=== PATIENT | female | born 1940 | race Two or more races ===

== ENCOUNTER 2021-05-16 10:52 | Inpatient (IN) | payer OTHER ==
[~2021-05-16] VITALS: Ht 149.9 cm; Wt 52.8 kg
[2021-05-16] MEDS ORDERED: SODIUM CHLORIDE 0.9% 1,000 ML IVB ONE (11:30)
[2021-05-16 12:11] LABS: Basophils # (auto) 0.1 10 ^3/uL (0-0.2); Basophils % (auto) 0.7 % (0.0-2.0); Eosinophils # (auto) 0.2 10 ^3/uL (0-0.8); Hematocrit 38.7 % (36.0-46.0); Hemoglobin 12.9 g/dL (12.2-16.2); Lymphocytes # (auto) 2.1 10 ^3/uL (0.4-5.4); Lymphocytes % (auto) 18.5 % (10.0-50.0); Mean Corpuscular Hemoglobin 28.9 pg (28.0-32.0); Mean Corpuscular Hgb Conc. 33.4 g/dL (32.0-36.0); Mean Corpuscular Volume 86.7 fL (80.0-100.0); Monocytes # (auto) 0.6 10 ^3/uL (0-1.3); Monocytes % (auto) 5.3 % (0.0-12.0); Neutrophils # (auto) 8.1 10 ^3/uL (1.6-8.6); Neutrophils % (auto) 73.5 % (37.0-80.0); Nucleated Red Blood Cells % 0.1 %; Red Blood Cells 4.47 10^6/uL (4.0-5.20); Red Cell Distribution Width 14.9 % (11.8-14.3); White Blood Cell 11.1 10^3/uL (4.4-10.8)
[2021-05-16 12:34] LABS: Albumin 2.9 g/dL (3.4-5.0); Calcium 8.5 mg/dL (8.5-10.1); Magnesium 2.5 mg/dL (1.6-2.6); Potassium 4.4 mmol/L (3.5-5.1)
[2021-05-16 12:36] LABS: Bilirubin, Total 0.4 mg/dL (0.2-1.0)
[2021-05-16] MEDS ORDERED: MORPHINE SULFATE INJECTION 2 MG/ML SYRG IV PRN ×3 (12:45→15:00)
[2021-05-16] MEDS ORDERED: NITROGLYCERIN 0.4 MG SL TAB SL PRN ×2 (12:45→15:00)
[2021-05-16] MEDS ORDERED: POTA10TA32 PO (13:49)
[2021-05-16] MEDS ORDERED: MET25T PO (13:49)
[2021-05-16] MEDS ORDERED: LOSA-69 PO (13:49)
[2021-05-16] MEDS ORDERED: DONE1TAB88 PO (13:49)
[2021-05-16] MEDS ORDERED: ACET1CAP14 PO (13:49)
[2021-05-16] MEDS ORDERED: CARV6.2551 PO (13:49)
[2021-05-16] MEDS ORDERED: POM (13:50)
[2021-05-16] MEDS ORDERED: ATORVASTATIN 20 MG TAB PO ONE (15:00)
[2021-05-16] MEDS ORDERED: ONDANSETRON HCL 4 MG/2 ML VIAL IV PRN (15:00)
[2021-05-16] MEDS ORDERED: ALUM & MAG HYDROX-SIMETH LIQ(MAALOX) 30 ML PO PRN (15:00)
[2021-05-16] MEDS ORDERED: levoFLOXacin 500MG 100 ML IV ONE (15:00)
[2021-05-16] MEDS ORDERED: HYDROcodone-ACET 5/325MG TAB PO PRN (15:00)
[2021-05-16] MEDS ORDERED: DOCUSATE SOD 100 MG CAP PO PRN (15:00)
[2021-05-16] MEDS ORDERED: ACETAMINOPHEN 325 MG TAB PO PRN (15:00)
[2021-05-16 15:37] LABS: Cholesterol 191 mg/dL (< 200)
[2021-05-16 15:40] LABS: HDL Cholesterol 69 mg/dL (40-59); LDL Cholesterol 102 mg/dL (< 100); Triglycerides 173 mg/dL (< 150)
[2021-05-16 17:54] LABS: Urine Bacteria FEW /hpf (None Seen); Urine Blood TRACE /uL (Negative); Urine Specific Gravity 1.013 (1.001-1.035); Urine WBC 27 /hpf (0 - 5)
[2021-05-16 18:09] LABS: Alcohol, Urine < 3.0 mg/dL (0-10); Amphetamine Screen, Urine NEGATIVE (NEGATIVE); Barbiturate Scree,Urine NEGATIVE (NEGATIVE); Benzodiazephine Screen, Urine NEGATIVE (NEGATIVE); Cannabinoid Screen, Urine NEGATIVE (NEGATIVE); Cocaine Screen, Urine NEGATIVE (NEGATIVE); Opiate Scree,Urine NEGATIVE (NEGATIVE); Phencyclidine Screen, Urine NEGATIVE (NEGATIVE)
[2021-05-16] MEDS: SODIUM CHLORIDE 0.9% 1,000 ML IV SCH (23:00)
[2021-05-16 23:05] VITALS: BP 162/96
[2021-05-16 23:58] VITALS: BP 162/96
[2021-05-17] VITALS (7 sets, daily range): BP systolic 83–158; BP diastolic 53–80
[2021-05-17] MEDS: ATORVASTATIN 20 MG TAB PO SCH ×2 (00:26→21:28)
[2021-05-17] MEDS: CARVEDILOL 3.125 MG TAB PO SCH ×3 (00:26→21:26)
[2021-05-17] MEDS ORDERED: INFLUENZA QUAD 2021-2022 0.5 ML SYRG IM ONE (00:45)
[2021-05-17 06:49] LABS: Basophils # (auto) 0 10 ^3/uL (0-0.2); Basophils % (auto) 0.4 % (0.0-2.0); Eosinophils # (auto) 0.2 10 ^3/uL (0-0.8); Eosinophils % (auto) 1.7 % (0.0-7.0); Hemoglobin 13.6 g/dL (12.2-16.2); Lymphocytes # (auto) 1.9 10 ^3/uL (0.4-5.4); Lymphocytes % (auto) 19.8 % (10.0-50.0); Mean Corpuscular Hemoglobin 29.2 pg (28.0-32.0); Mean Corpuscular Hgb Conc. 33.9 g/dL (32.0-36.0); Monocytes # (auto) 0.5 10 ^3/uL (0-1.3); Monocytes % (auto) 5.8 % (0.0-12.0); Neutrophils # (auto) 6.8 10 ^3/uL (1.6-8.6); Neutrophils % (auto) 72.3 % (37.0-80.0); Nucleated Red Blood Cells % 0.2 %; Red Blood Cells 4.65 10^6/uL (4.0-5.20); Red Cell Distribution Width 14.6 % (11.8-14.3); White Blood Cell 9.4 10^3/uL (4.4-10.8)
[2021-05-17 06:58] LABS: INR 1.03 (0.9-1.15); Partial Thromboplastin Time 31.8 sec (23.6-33.0)
[2021-05-17 07:05] LABS: Calcium 8.2 mg/dL (8.5-10.1); Potassium 3.7 mmol/L (3.5-5.1)
[2021-05-17 07:13] LABS: Albumin 2.8 g/dL (3.4-5.0); BUN/Creatinine Ratio 19.6; Bilirubin, Total 0.6 mg/dL (0.2-1.0); Magnesium 2.3 mg/dL (1.6-2.6); Phosphorus 3.5 mg/dL (2.5-4.90); Total Protein 7.4 g/dL (6.4-8.2)
[2021-05-17] MEDS: levoFLOXacin 250MG 50 ML IV SCH (09:40)
[2021-05-17] MEDS: SODIUM CHLORIDE 0.9% 1,000 ML IV SCH (09:41)
[2021-05-17] MEDS: LOSARTAN POTASSIUM 50 MG TAB PO SCH (09:41)
[2021-05-17] MEDS: ASPirin 81 mg TAB PO SCH (09:42)
[2021-05-17] MEDS ORDERED: ENOXAPARIN SOD 60 MG/0.6 ML SYRINGE SC SCH (10:00)
[2021-05-17] MEDS ORDERED: levoFLOXacin 500MG 100 ML IV SCH (10:00)
[2021-05-17] MEDS: SOD CHL 0.9%/ KCL 20MEQ 1,000 ML IV SCH (16:30)
[2021-05-18] VITALS (8 sets, daily range): BP systolic 144–198; BP diastolic 68–89
[2021-05-18] MEDS ORDERED: ADENOSINE 44 MG in GIVE UN-DILUTED 0 ML IV STA (08:03)
[2021-05-18] MEDS: SOD CHL 0.9%/ KCL 20MEQ 1,000 ML IV SCH ×2 (09:44→18:10)
[2021-05-18] MEDS: ASPirin 81 mg TAB PO SCH (09:45)
[2021-05-18] MEDS: CARVEDILOL 3.125 MG TAB PO SCH ×2 (09:51→22:46)
[2021-05-18] MEDS: ENOXAPARIN SOD 30 MG/0.3 ML SYRINGE SC SCH (09:52)
[2021-05-18] MEDS: levoFLOXacin 250MG 50 ML IV SCH (09:52)
[2021-05-18] MEDS: LOSARTAN POTASSIUM 50 MG TAB PO SCH (09:52)
[2021-05-18] MEDS ORDERED: HALOPERIDOL LACTATE 5 MG/ML INJ VIAL IM PRN ×2 (14:45→21:45)
[2021-05-18] MEDS: ATORVASTATIN 20 MG TAB PO SCH (22:46)
[2021-05-19 04:53] VITALS: BP 159/82
[2021-05-19 09:00] VITALS: BP 164/100
[2021-05-19] MEDS: ASPirin 81 mg TAB PO SCH (09:16)
[2021-05-19] MEDS: levoFLOXacin 250MG 50 ML IV SCH (09:16)
[2021-05-19] MEDS: ENOXAPARIN SOD 30 MG/0.3 ML SYRINGE SC SCH (09:16)
[2021-05-19] MEDS: LOSARTAN POTASSIUM 50 MG TAB PO SCH (09:17)
[2021-05-19] MEDS: CARVEDILOL 3.125 MG TAB PO SCH ×2 (09:18→21:35)
[2021-05-19] MEDS: SOD CHL 0.9%/ KCL 20MEQ 1,000 ML IV SCH (09:22)
[2021-05-19 12:10] LABS: Folate (Folic Acid) 15.74 ng/mL (5.38-24)
[2021-05-19 13:00] VITALS: BP 191/106
[2021-05-19] MEDS ORDERED: cefTRIAXone 1GM/50ML D5W 50 ML IV SCH (14:00)
[2021-05-19] MEDS ORDERED: cefTRIAXone 1GM/50ML D5W 50 ML IV ONE (14:00)
[2021-05-19] MEDS: hydrALAZINE HCL 20 MG/ML VL IV PRN ×2 (15:43→21:51)
[2021-05-19 17:00] VITALS: BP 165/104
[2021-05-19] MEDS ORDERED: amLODIPine BESYLATE 5 MG TAB PO ONE (17:15)
[2021-05-19 19:11] VITALS: BP 176/101
[2021-05-19] MEDS: ATORVASTATIN 20 MG TAB PO SCH (21:35)
[2021-05-19 22:00] VITALS: BP 97/49
[2021-05-20 05:00] VITALS: BP 128/60
[2021-05-20 07:30] VITALS: BP 97/49
[2021-05-20 08:03] LABS: Basophils # (auto) 0 10 ^3/uL (0-0.2); Basophils % (auto) 0.3 % (0.0-2.0); Eosinophils # (auto) 0 10 ^3/uL (0-0.8); Eosinophils % (auto) 0.2 % (0.0-7.0); Hematocrit 41.7 % (36.0-46.0); Hemoglobin 13.8 g/dL (12.2-16.2); Lymphocytes # (auto) 1.8 10 ^3/uL (0.4-5.4); Lymphocytes % (auto) 15.8 % (10.0-50.0); Mean Corpuscular Hemoglobin 28.5 pg (28.0-32.0); Mean Corpuscular Hgb Conc. 33.1 g/dL (32.0-36.0); Mean Corpuscular Volume 86.1 fL (80.0-100.0); Monocytes # (auto) 0.6 10 ^3/uL (0-1.3); Monocytes % (auto) 5.4 % (0.0-12.0); Neutrophils # (auto) 8.8 10 ^3/uL (1.6-8.6); Neutrophils % (auto) 78.3 % (37.0-80.0); Nucleated Red Blood Cells % 0.1 %; Red Blood Cells 4.85 10^6/uL (4.0-5.20); Red Cell Distribution Width 15.3 % (11.8-14.3); White Blood Cell 11.3 10^3/uL (4.4-10.8)
[2021-05-20 08:17] LABS: BUN/Creatinine Ratio 20.1; Calcium 8.8 mg/dL (8.5-10.1); Potassium 4.4 mmol/L (3.5-5.1)
[2021-05-20 09:00] VITALS: BP 96/45
[2021-05-20] MEDS: LOSARTAN POTASSIUM 50 MG TAB PO SCH (10:00)
[2021-05-20] MEDS: CARVEDILOL 3.125 MG TAB PO SCH ×2 (10:00→22:22)
[2021-05-20] MEDS: amLODIPine BESYLATE 5 MG TAB PO SCH (10:00)
[2021-05-20] MEDS: ASPirin 81 mg TAB PO SCH (11:08)
[2021-05-20] MEDS: cefTRIAXone 1GM/50ML D5W 50 ML IV SCH (11:08)
[2021-05-20] MEDS: ENOXAPARIN SOD 30 MG/0.3 ML SYRINGE SC SCH (11:08)
[2021-05-20 13:00] VITALS: BP 98/49
[2021-05-20 17:00] VITALS: BP 114/74
[2021-05-20 22:03] VITALS: BP 141/69
[2021-05-20] MEDS: ATORVASTATIN 20 MG TAB PO SCH (22:22)
[2021-05-21 05:10] VITALS: BP 145/65
[2021-05-21 08:40] VITALS: BP 118/69
[2021-05-21] MEDS: cefTRIAXone 1GM/50ML D5W 50 ML IV SCH (09:25)
[2021-05-21] MEDS: ASPirin 81 mg TAB PO SCH (10:33)
[2021-05-21] MEDS: CARVEDILOL 3.125 MG TAB PO SCH ×2 (10:34→22:02)
[2021-05-21] MEDS: LOSARTAN POTASSIUM 50 MG TAB PO SCH (10:34)
[2021-05-21] MEDS: amLODIPine BESYLATE 5 MG TAB PO SCH (10:35)
[2021-05-21] MEDS: ENOXAPARIN SOD 30 MG/0.3 ML SYRINGE SC SCH (10:35)
[2021-05-21 12:36] VITALS: BP 154/71
[2021-05-21 17:00] VITALS: BP 128/54
[2021-05-21] MEDS: ATORVASTATIN 20 MG TAB PO SCH (22:02)
[2021-05-21 22:18] VITALS: BP 147/71
[2021-05-22] MEDS: hydrALAZINE HCL 20 MG/ML VL IV PRN (00:21)
[2021-05-22] MEDS: cefTRIAXone 1GM/50ML D5W 50 ML IV SCH (08:56)
[2021-05-22] MEDS: ASPirin 81 mg TAB PO SCH (10:00)
[2021-05-22] MEDS: CARVEDILOL 3.125 MG TAB PO SCH (10:07)
[2021-05-22] MEDS: amLODIPine BESYLATE 5 MG TAB PO SCH (10:08)
[2021-05-22] MEDS: ENOXAPARIN SOD 30 MG/0.3 ML SYRINGE SC SCH (10:08)
[2021-05-22 14:22] LABS: Calcium 8.5 mg/dL (8.5-10.1); Potassium 3.9 mmol/L (3.5-5.1)
[2021-05-22] MEDS ORDERED: LOSA-69 PO (14:52)
[2021-05-22] MEDS ORDERED: ASPI1TAB20 PO (14:52)
[2021-05-22] MEDS ORDERED: AML5T PO (14:52)
[2021-05-22] MEDS ORDERED: ATOR10TA52 PO (14:52)
[2021-05-22] MEDS ORDERED: HAL5T PO (14:54)
[2021-05-22 16:27] VITALS: BP 149/69
[2021-05-22 16:38] VITALS: BP 149/69
== END 2021-05-22 17:00 | disposition home or self-care (01) | DRG 70 ==
LOC: EDBD 10:52 → ER 10:52 → TELE 12:31 → TELE-CENTR 23:05
PROVIDERS: ADMIT Hospitalist; ATTEND Internal Medicine
PROC: 05HB33Z Insertion of Infusion Device into Right Basilic Vein, Percutaneous Approach (ICD-10-PCS; principal; 2021-05-17)
PROC: B54MZZA Ultrasonography of Right Upper Extremity Veins, Guidance (ICD-10-PCS; 2021-05-17)
DX: G93.41 Metabolic encephalopathy (principal); N17.0 Acute kidney failure with tubular necrosis; I13.0 Hypertensive heart and chronic kidney disease with heart failure and stage 1 through stage 4 chronic kidney disease, or unspecified chronic kidney disease; N39.0 Urinary tract infection, site not specified; I50.22 Chronic systolic (congestive) heart failure; I42.9 Cardiomyopathy, unspecified; R55 Syncope and collapse; G30.9 Alzheimer's disease, unspecified; F02.80 Dementia in other diseases classified elsewhere, unspecified severity, without behavioral disturbance, psychotic disturbance, mood disturbance, and anxiety; N18.31 Chronic kidney disease, stage 3a; Z20.822 Contact with and (suspected) exposure to COVID-19; B96.1 Klebsiella pneumoniae [K. pneumoniae] as the cause of diseases classified elsewhere; E78.1 Pure hyperglyceridemia; F17.200 Nicotine dependence, unspecified, uncomplicated; E78.5 Hyperlipidemia, unspecified; I44.7 Left bundle-branch block, unspecified; B96.4 Proteus (mirabilis) (morganii) as the cause of diseases classified elsewhere; M19.90 Unspecified osteoarthritis, unspecified site; R32 Unspecified urinary incontinence; Z79.899 Other long term (current) drug therapy; Z82.3 Family history of stroke; Z83.3 Family history of diabetes mellitus; Z85.3 Personal history of malignant neoplasm of breast; Z90.12 Acquired absence of left breast and nipple; Z90.710 Acquired absence of both cervix and uterus; Z88.0 Allergy status to penicillin
CPT/HCPCS: 36415; 70450; 70551; 71045; 78452; 80048; 80053; 80061; 80307; 81001; 82607; 82746; 83036; 83735; 83880; 84100; 84443; 84484; 85025; 85610; 85730; 87040; 87086; 87088; 87186; 87426; 93005; 93017; 93306; 93886; 95819; 96365; 97163; G0378; J0153; J0696; J1956

== ENCOUNTER 2024-06-29 12:20 | Inpatient (IN) | payer OTHER ==
[~2024-06-29] VITALS: Ht 157.5 cm; Wt 56.5 kg
[~2024-06-29 12:20] MED LIST: AML5T PO; ASPI1TAB20 PO; ATOR10TA52 PO; CARV6.2551 PO; DONE1TAB88 PO; HAL5T PO; LOSA-534 PO
--- NOTE | 2024-06-29 12:38 | ECG ---
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
--- NOTE | 2024-06-29 12:50 | ED.PDOC ---
Altered Mental Status HPI Comments 83 y.o female with PMH of HDL and HTN, presents to the ED via EMS for an evaluation of a syncopal episode today. EMS reports patient was inside her shower, caregiver was assisting her up from the shower seat when patient lost consciousness. Patient was assisted down, therefore no head injury was reported. Patient is unable to recollect event, at this time is unsure of where she is at nor what she did today or yesterday. Family on scene told EMS patient is not at her baseline and denied any history of dementia or Alzheimer but per [facility] record of 2020, there is comment of possible history of Alzheimer. Patient had 2 episodes of vomiting en route but upon ED arrival, symptoms resolved. Patient d enies any symptoms or pain at this time. Per EMS, patient was saturating in the low 91-92% RA, was placed on 2 liters NC and 12 EKG ran read Left bundle branch block. Patient has no history of CAD, CHF, or AR. Chief Complaint: Syncope Time Seen by MD: 12:28 Reviewed Notes: Nurses Notes, Transcriptionist Notes, Medications, Allergies Allergies: Coded Allergies: Penicillins (Verified Allergy, Unknown, 05/16/21) Home Meds Active Scripts Haloperidol (Haldol) 5 Mg Tb, 0.5 TAB PO Q8HP PRN, #20 TAB 0 Refills 1/2 tab q8h prn for agitation Prov:MIR HALE MD 05/22/21 Atorvastatin Calcium (ATORVASTATIN CALCIUM) 10 Mg Tab, 1 TAB PO DAILY, #30 TAB 0 Refills Prov:MIR HALE MD 05/22/21 Aspirin (Aspir-81) 81 Mg Tab, 1 TAB PO DAILY, #90 TAB 0 Refills Prov:MIR HALE MD 05/22/21 Losartan Potassium (Losartan Potassium) 50 Mg Tab, 1 TAB PO DAILY, #30 TAB 0 Refills Prov:MIR HALE MD 05/22/21 Amlodipine Besylate (NORVASC TABLET) 5 Mg Tb, 5 MG PO DAILY for 30 Days, #30 TAB Prov:MIR HALE MD 05/22/21 Reported Medications Donepezil Hydrochloride (DONEPEZIL HCL) 10 Mg Tab, 1 TAB PO QPM 05/16/21 Carvedilol (Carvedilol) 6.25 Mg Tab, 1 TAB PO BIDWM 05/16/21 Information Source: Patient, Emergency Med Personnel Mode of Arrival: EMS Severity: Moderate Timing: Hours Duration: Since onset Prehospital treatment: 12 Lead EKG (left bundle branch block ), 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 [employer], Oxygen (2 liters NC ) Quality: Decreased Alertness, Change in Behavior, Confusion Recent: Nausea, Vomiting Associated Signs and Symptoms: None Past Medical History PAST MEDICAL HISTORY: Dementia, HTN Surgical History: Appendectomy, Tonsillectomy HISTOLOGY TEACHER History: No Pertinent HISTOLOGY TEACHER History Family History Family History: Unknown Social History Smoker: Non-Smoker, Quit Greater Than 1 Year Alcohol: Denies ETOH Use Drugs: Denies Drug Use Lives In: Home Constitutional: denies: chills, diaphoresis, fatigue, fever, malaise, sweats, weakness, others EENTM: denies: blurred vision, double vision, ear bleeding, ear discharge, ear drainage, ear pain, ear ringing, eye pain, eye redness, hearing loss, mouth pain, mouth swelling, nasal discharge, nose bleeding, nose congestion, nose pain, photophobia, tearing, throat pain, throat swelling, voice changes, others Respiratory: denies: cough, hemoptysis, orthopnea, SOB at rest, shortness of breath, SOB with excertion, stridor, wheezing, others Cardiovascular: denies: chest pain, dizzy spells, diaphoresis, Dyspnea on exertion, edema, irregular heart beat, left arm pain, lightheadedness, palpitations, PND, syncope, others Gastrointestinal: reports: nausea, vomiting; denies: abdomen distended, abdominal pain, blood streaked bowels, constipated, diarrhea, dysphagia, difficulty swallowing, hematemesis, melena, poor appetite, poor fluid intake, rectal bleeding, rectal pain, others Genitourinary: denies: abnormal vagina bleeding, burning, dyspareunia, dysuria, flank pain, frequency, hematuria, incontinence, pain, , vagina discharge, urgency, others Neurological: denies: dizziness, fainting, headache, left sided numbness, left sided weakness, numbness, paresthesia, pre-existing deficit, right sided numbness, right sided weakness, seizure, speech problems, tingling, tremors, weakness, others Musculoskeletal: denies: back pain, gout, joint pain, joint swelling, muscle pain, muscle stiffness, neck pain, others Integumetry: denies: bruises, change in color, change in hair/nails, dryness, laceration, lesions, lumps, rash, wounds, others Allergic/Immunocompromised: denies: Difficulty Healing, Frequent Infections, Hives, Itching, others Hematologic/Lymphatic: denies: anemia, blood clots, easy bleeding, easy bruising, swollen glands, others Endocrine: denies: excessive hunger, excessive sweating, excessive thirst, excessive urination, flushing, intolerance to cold, intolerance to heat, unexplained weight gain, unexplained weight loss, others Psychiatric: denies: anxiety, bipolar disorder, depression, hopeless, panic disorder, schizophrenia, sleepless, suicidal, others All Other Systems: Reviewed and Negative Physical Exam General Appearance: Moderate Distress HEENT: Normal ENT Inspection, Pharynx Normal, TMs Normal Neck: Full Range of Motion, Non-Tender, Normal, Normal Inspection Respiratory: Chest Non-Tender, Lungs Clear, No Accessory Muscle Use, No Respiratory Distress, Normal Breath Sounds Cardiovascular: No Edema, No JVD, No Murmur, No Gallop, Normal Peripheral Pulses, Regular Rate/Rhythm Breast Exam: Deferred Gastrointestinal: No Organomegaly, Non Tender, No Pulsatile Mass, Normal Bowel Sounds, Soft Genitalia: Deferred Pelvic: Deferred Rectal: Deferred Extremities: No calf tenderness, Normal capillary refill, Normal inspection, Normal range of motion, Non-tender, No pedal edema Musculoskeletal : Apperance: Normal Neurologic: Alert, driver manager II-XII nml as Tested, No Motor Deficits, Normal Affect, Normal Mood, No Sensory Deficits Cerebellar Function: Normal Reflexes: Normal Skin: Dry, Normal Color, Warm Lymphatic: No Adenopathy EKG EKG : Pulse Rate (adult): 79 [place]: Normal Cardiac Rhythm: NSR Block: None ST: Nonsp Was a procedure done? Was a procedure done?: No Differential Diagnosis (ALOC) Differential Diagnosis: Dehydration, Hypoxemia, Seizure, Mass Lesion, Heart Failure, Renal Failure X-Ray, Labs, Meds, VS Vital Signs Date Time Temp Pulse Resp B/P (MAP) Pulse Ox O2 Delivery O2 Flow Rate FiO2 06/29/24 16:37 87 18 165/85 (111) 98 06/29/24 13:00 87 16 94 Room Air* 0 21 06/29/24 13:00 86 18 151/57 (88) 94 06/29/24 12:30 98.9 79 16 143/81 (101) 97 06/29/24 12:24 78 Lab Test 06/29/24 17:25 06/29/24 15:10 06/29/24 14:58 06/29/24 13:58 Range/Units Lactic Acid Level 1.9 0.4-2.0 mmol/L Troponin I High Sensitivity 57 *H 39 *H 41 *H </=34 ng/L Urine Color Colorless Yellow Urine Clarity Clear Clear Urine pH 6.5 5.0-9.0 Urine Specific [place] 1.005 1.001-1.035 Urine Protein Negative Negative Urine Ketones Negative Negative Urine Blood Trace H Negative /uL Urine Nitrite Negative Negative Urine Bilirubin Negative Negative Urine Urobilinogen Normal Negative mg/dL Urine Leukocyte Esterase Negative Negative /uL Urine RBC 1 0 - 4 /hpf Urine WBC <1 0 - 5 /hpf Urine Squamous Epithelial Cells None seen <5 /hpf Urine Bacteria None seen None Seen /hpf Urine Glucose Normal Normal mg/dL White Blood Count 13.8 H 4.4-10.8 10^3/uL Red Blood Count 5.12 4.0-5.20 10^6/uL Hemoglobin 15.2 12.2-16.2 g/dL Hematocrit 45.5 36.0-46.0 % Mean Corpuscular Volume 88.9 80.0-100.0 fL Mean Corpuscular Hemoglobin 29.6 28.0-32.0 pg Mean Corpuscular Hemoglobin Concent 33.3 32.0-36.0 g/dL Red Cell Distribution Width 14.8 H 11.8-14.3 % Platelet Count 229 140-450 10^3/uL Mean Platelet Volume 7.5 6.9-10.8 fL Neutrophils (%) (Auto) 91.6 H 37.0-80.0 % Lymphocytes (%) (Auto) 2.8 L 10.0-50.0 % Monocytes (%) (Auto) 5.4 0.0-12.0 % Eosinophils (%) (Auto) 0.0 0.0-7.0 % Basophils (%) (Auto) 0.2 0.0-2.0 % Neutrophils # (Auto) 12.6 H 1.6-8.6 10 ^3/uL Lymphocytes # (Auto) 0.4 0.4-5.4 10 ^3/uL Monocytes # (Auto) 0.7 0-1.3 10 ^3/uL Eosinophils # (Auto) 0 0-0.8 10 ^3/uL Basophils # (Auto) 0 0-0.2 10 ^3/uL Nucleated Red Blood Cells 0.1 % Sodium Level 137 136-145 mmol/L Potassium Level 3.6 3.5-5.1 mmol/L Chloride Level 102 98-107 mmol/L Carbon Dioxide Level 29 20-31 mmol/L Anion Gap 6 5-15 Blood Urea Nitrogen 18 9-23 mg/dL Creatinine 1.28 H 0.550-1.02 mg/dL Glomerular Filtration Rate Calc 41 >90 mL/min BUN/Creatinine Ratio 14.1 10.0-20.0 Serum Glucose 129 H 74-106 mg/dL Calcium Level 8.3 L 8.7-10.4 mg/dL Magnesium Level 1.7 1.6-2.6 mg/dL Current Medications Medications (Trade) Dose Ordered Sig/Carmen Route Start Time Stop Time Status Last Admin Sodium Chloride 500 ml @ 500 mls/hr Q1H ONCE IV 06/29/24 12:45 06/29/24 13:44 DC 06/29/24 13:07 Aspirin 162 mg ONCE ONCE PO 06/29/24 15:45 06/29/24 16:07 DC 06/29/24 17:17 Sodium Chloride 1,000 ml @ 60 mls/hr [id number] IV 06/29/24 15:45 06/29/24 15:45 EXAM: CT HEAD WITHOUT CONTRAST IMPRESSION: 1. No CT evidence of acute intracranial abnormality. CHEST RADIOGRAPH IMPRESSION: No acute disease. The patient was given aspirin here in the emergency department's The patient was given a bolus of normal saline x2 The patient's CBC shows an elevated white blood cell count of 13.8 The rest of the CBC and chemistry panel is within normal limits The urine test is negative The patient's troponin level is elevated at 57 and then 39 at 41 The patient was being admitted at this time. Images Reviewed?: Images reviewed and evaluated by me Time of 1ST Reevaluation: 12:43 Reevaluation 1ST: Unchanged Patient Education/Counseling: Other Family Education/Counseling: No Family Present Departure 1 Departure Time of Disposition: 18:09 Impression: Primary Impression: Autonomic dysfunction Additional Impression: Elevated troponin Disposition: 09 ADMITTED INPATIENT Admit to: [facility] Condition: Fair Critical Care Note Critical Care Time?: Yes (35 min-critical care time only) Stability Stability form required: Yes Unstable for transfer: Telemetry monitoring (Telemetry monitoring required), ED Physician Assesment (Clinical assesment) Heart Score Heart Score: Heart Score Response (Comments) Value History N/A 0 EKG N/A 0 Age N/A 0 Risk Factors N/A 0 Troponin N/A 0 Total 0 I personally scribed for WILEY BERKOWITZ MD ([email or web address]) on 06/29/24 at 12:49. Electronically submitted by Mary Biggs ([employer]). I personally scribed for WILEY BERKOWITZ MD ([email or web address]) on 06/29/24 at 15:36. Electronically submitted by Mary Biggs ([facility] I personally scribed for WILEY BERKOWITZ MD ([email or web address]) on 06/29/24 at 18:32. Electronically submitted by Mary Biggs ([facility] WILEY BERKOWITZ MD Jun 29, 2024 12:49
[2024-06-29 13:00] VITALS: PULSE 87; RESP 16; O2SAT 94
[2024-06-29] MEDS: SODIUM CHLORIDE 0.9% 500 ML IV ONE (13:07)
--- NOTE | 2024-06-29 13:28 | DVH ---
CHEST RADIOGRAPH Indication: syncope Technique: Single frontal view of the chest was obtained COMPARISON: CHEST PORTABLE on DOS: 05/16/21 FINDINGS: Lines and Tubes: None Lungs: Clear Pleura: No effusion. No pneumothorax. Cardiomediastinal contours: Unremarkable Bones: Unremarkable IMPRESSION: No acute disease.
--- NOTE | 2024-06-29 13:34 | DVH ---
EXAM: CT HEAD WITHOUT CONTRAST INDICATION: syncope TECHNIQUE: CT of the head without intravenous contrast. Radiation Dose Information: CT Dose: CTDI volume is 53.38 mGy. Dose-length product is 945.26 mGy*cm The dose indicators for CT are the volume Computed Tomography (CT) Dose Index (CTDIvol) and the Dose Length Product (DLP), and are measured in units of mGy and mGy-cm, respectively. These indicators are not patient dose, but values generated from the CT scanner acquisition factors. The report includes radiation exposure data for exposures received during this examination. COMPARISON: BRAIN HEAD WO CONTRAST on DOS: 05/19/21, HEAD WITHOUT CONTRAST on DOS: 05/16/21 FINDINGS: There is no evidence of acute intracranial hemorrhage, extra-axial collection, mass effect, midline s hift, herniation or hydrocephalus. The ventricles, sulci and cisterns are age appropriate. The pinon-white differentiation is intact. Patchy periventricular and subcortical white matter hypoattenuation is nonspecific but may be related to small vessel ischemic disease. The visualized paranasal sinuses and mastoid air cells are clear. The surrounding soft tissues and osseous structures are unremarkable. IMPRESSION: 1. No CT evidence of acute intracranial abnormality. HS:Y
[2024-06-29 14:13] LABS: Basophils # (auto) 0 10 ^3/uL (0-0.2); Basophils % (auto) 0.2 % (0.0-2.0); Eosinophils # (auto) 0 10 ^3/uL (0-0.8); Hematocrit 45.5 % (36.0-46.0); Hemoglobin 15.2 g/dL (12.2-16.2); Lymphocytes # (auto) 0.4 10 ^3/uL (0.4-5.4); Lymphocytes % (auto) 2.8 % (10.0-50.0); Mean Corpuscular Hemoglobin 29.6 pg (28.0-32.0); Mean Corpuscular Hgb Conc. 33.3 g/dL (32.0-36.0); Mean Corpuscular Volume 88.9 fL (80.0-100.0); Monocytes # (auto) 0.7 10 ^3/uL (0-1.3); Monocytes % (auto) 5.4 % (0.0-12.0); Neutrophils # (auto) 12.6 10 ^3/uL (1.6-8.6); Neutrophils % (auto) 91.6 % (37.0-80.0); Nucleated Red Blood Cells % 0.1 %; Platelet Count (auto) 229 10^3/uL (140-450); Red Blood Cells 5.12 10^6/uL (4.0-5.20); Red Cell Distribution Width 14.8 % (11.8-14.3); White Blood Cell 13.8 10^3/uL (4.4-10.8)
[2024-06-29 14:21] LABS: Chloride 102 mmol/L (98-107); Potassium 3.6 mmol/L (3.5-5.1); Sodium 137 mmol/L (136-145)
[2024-06-29 14:22] LABS: Anion Gap 6 (5-15); Calcium 8.3 mg/dL (8.7-10.4); Carbon Dioxide 29 mmol/L (20-31)
[2024-06-29 14:27] LABS: BUN/Creatinine Ratio 14.1 (10.0-20.0); Blood Urea Nitrogen 18 mg/dL (9-23); Magnesium 1.7 mg/dL (1.6-2.6)
[2024-06-29 14:32] LABS: Glucose 129 mg/dL (74-106)
[2024-06-29 15:28] LABS: Urine Bacteria None Seen /hpf (None Seen)
[2024-06-29 15:38] LABS: Urine Blood TRACE /uL (Negative); Urine Clarity Clear (Clear); Urine Color Colorless (Yellow); Urine Protein, UAD Negative (Negative); Urine Specific Gravity 1.005 (1.001-1.035); Urine Urobilinogen Normal (Negative); Urine WBC <1 /hpf (0 - 5); Urine pH 6.5 (5.0-9.0)
[2024-06-29] MEDS: SODIUM CHLORIDE 0.9% 1,000 ML IV SCH (15:45)
[2024-06-29] MEDS ORDERED: ONDANSETRON HCL 4 MG/2 ML VIAL IV PRN (15:45)
[2024-06-29] MEDS ORDERED: DOCUSATE SOD 100 MG CAP PO PRN (15:45)
[2024-06-29] MEDS ORDERED: hydrALAZINE HCL 20 MG/ML VL IV PRN (15:45)
[2024-06-29] MEDS ORDERED: ACETAMINOPHEN 325 MG TAB PO PRN (15:45)
[2024-06-29] MEDS ORDERED: HYDROcodone-ACET 5/325MG TAB PO PRN (15:45)
[2024-06-29] MEDS: ASPirin 81 mg TAB PO ONE (17:17)
[2024-06-29] MEDS ORDERED: NITROGLYCERIN 0.4 MG SL TAB SL PRN (19:00)
[2024-06-29] MEDS ORDERED: MORPHINE SULFATE INJ 2 MG/ml SYRG IV PRN (19:00)
--- NOTE | 2024-06-29 19:20 | DVHHP2 ---
History of Present Illness Reason for Visit: Syncopal episode History of Present Illness The patient is a 83-year-old female with past medical history of hyperlipidemia, dementia, and hypertension who presented to [facility] ED for evaluation of syncopal episode. As reported, caregiver was assisting patient on a shower chair when she lost consciousness, patient was assisted down without head injury and called EMS. Patient unable to recall event, had two episodes of nausea and vomiting. Patient was seen and evaluated in the ED, laboratory data shows WBC 13.8, platelets 229, sodium 137, potassium 3.6, BUN 18, creatinine 1.28, GFR 41, glucose 129, troponin 41, blood pressure 157/57, heart rate 86, temperature 98.9 F, O2 saturation 94% on oxygen. Head CT showed no evidence of acute intracranial abnormality. Please see medication orders section in the computer. On my assessment, patient remains weak, no diaphoresis, currently on oxygen, no nausea, no vomiting, no fever, no chills. Patient was admitted for further evaluation and medical management. Past Medical History Dementia, HTN, HLD Past Surgical History Appendectomy, Tonsillectomy Family History Reviewed, noncontributory to the management of this case. Past Social History The patient lives at home, denies smoking, alcohol or illicit drugs abuse. Review of Systems Constitutional: Yes: Weakness; No: Fever, Chills, Sweats, Malaise, Other Eyes: No: Pain, Vision change, Conjunctivae inflammation, Eyelid inflammation, Other, Redness ENT: No: Ear pain, Ear discharge, Nose pain, Nose discharge, Nose congestion, Mouth pain, Mouth swelling, Throat pain, Throat swelling, Other Respiratory: Shortness of breath; No: Cough, Dry, SOB with excertion, Wheezing, Hemoptysis, Pleuritic Pain, Sputum, Wheezing, Other Cardiovascular: Other (Syncope); No: Chest Pain, Palpitations, Orthopnea, Paroxysmal Noc. Dyspnea, Edema, Lt Headedness Gastrointestinal: Nausea, Vomiting; No: Abdominal Pain, Diarrhea, Constipation, Melena, Hematochezia, Other Genitourinary: No Dysuria, No Frequency, No Incontinence, No Hematuria, No Retention, No Other Musculoskeletal: No: other, neck pain, shoulder pain, arm pain, back pain, hand pain, leg pain, foot pain Skin: No: Rash, Lesions, Jaundice, Bruising, Other Neurological: No: Weakness, Numbness, Incoordination, Change in speech, Confusion, Seizures, Other Allergies: Coded Allergies: Penicillins (Verified Allergy, Unknown, 05/16/21) Medications Current Medications Medications Dose Ordered Sig/Carmen Route Start Time Stop Time Status Last Admin Dose Admin Donepezil HCl 10 mg HS PO 06/29/24 22:00 Aspirin 81 mg DAILY PO 06/30/24 10:00 Atorvastatin Calcium 10 mg HS PO 06/29/24 22:00 Amlodipine Besylate 5 mg DAILY PO 06/30/24 10:00 Carvedilol 6.25 mg Q12HR PO 06/29/24 22:00 Hydralazine HCl 10 mg Q6HP PRN IV 06/29/24 15:45 Sodium Chloride 1,000 ml @ 60 mls/hr [id number] IV 06/29/24 15:45 06/29/24 15:45 60 MLS/HR Acetaminophen/ Hydrocodone Bitart 1 tab Q4HP PRN PO 06/29/24 15:45 Ondansetron HCl 4 mg Q4HP PRN IV 06/29/24 15:45 Docusate Sodium 100 mg BIDPRN PRN PO 06/29/24 15:45 Acetaminophen 650 mg Q6HP PRN PO 06/29/24 15:45 Exam Vital Signs Vital Signs Date Time Temp Pulse Resp B/P (MAP) Pulse Ox O2 Delivery O2 Flow Rate FiO2 06/29/24 16:37 87 18 165/85 (111) 98 06/29/24 13:00 Room Air* 0 21 06/29/24 12:30 98.9 General Appearance: Alert, Cooperative, No acute distress, Other (Oriented x2) HEENT: Atraumatic, PERRLA, EOMI, Mucous membr. moist/pink Respiratory: Clear to auscultation, Normal air movement Cardiovascular: Regular rate, Normal S1, Normal S2, No murmurs Abdominal: Normal bowel sounds, Soft, No tenderness, No hepatospenomegaly, No masses Extremities: No clubbing, No cyanosis, No edema, Normal pulses, No tenderness/swelling Skin: No rashes, No breakdown, No significant lesion Neuro: Normal speech, Normal tone, Sensation intact, Cranial nerves 3-12 NL, Reflexes 2+, Other (Generalized weakness) Psych/Mental Status: Mental status NL, Mood NL Labs/Xrays Labs Test 06/29/24 17:25 06/29/24 14:58 06/29/24 13:58 Range/Units Lactic Acid Level 1.9 0.4-2.0 mmol/L Troponin I High Sensitivity 57 *H </=34 ng/L Urine Color Colorless Yellow Urine Clarity Clear Clear Urine pH 6.5 5.0-9.0 Urine Specific [place] 1.005 1.001-1.035 Urine Protein Negative Negative Urine Ketones Negative Negative Urine Blood Trace H Negative /uL Urine Nitrite Negative Negative Urine Bilirubin Negative Negative Urine Urobilinogen Normal Negative mg/dL Urine Leukocyte Esterase Negative Negative /uL Urine RBC 1 0 - 4 /hpf Urine WBC <1 0 - 5 /hpf Urine Squamous Epithelial Cells None seen <5 /hpf Urine Bacteria None seen None Seen /hpf Urine Glucose Normal Normal mg/dL White Blood Count 13.8 H 4.4-10.8 10^3/uL Red Blood Count 5.12 4.0-5.20 10^6/uL Hemoglobin 15.2 12.2-16.2 g/dL Hematocrit 45.5 36.0-46.0 % Mean Corpuscular Volume 88.9 80.0-100.0 fL Mean Corpuscular Hemoglobin 29.6 28.0-32.0 pg Mean Corpuscular Hemoglobin Concent 33.3 32.0-36.0 g/dL Red Cell Distribution Width 14.8 H 11.8-14.3 % Platelet Count 229 140-450 10^3/uL Mean Platelet Volume 7.5 6.9-10.8 fL Neutrophils (%) (Auto) 91.6 H 37.0-80.0 % Lymphocytes (%) (Auto) 2.8 L 10.0-50.0 % Monocytes (%) (Auto) 5.4 0.0-12.0 % Eosinophils (%) (Auto) 0.0 0.0-7.0 % Basophils (%) (Auto) 0.2 0.0-2.0 % Neutrophils # (Auto) 12.6 H 1.6-8.6 10 ^3/uL Lymphocytes # (Auto) 0.4 0.4-5.4 10 ^3/uL Monocytes # (Auto) 0.7 0-1.3 10 ^3/uL Eosinophils # (Auto) 0 0-0.8 10 ^3/uL Basophils # (Auto) 0 0-0.2 10 ^3/uL Nucleated Red Blood Cells 0.1 % Sodium Level 137 136-145 mmol/L Potassium Level 3.6 3.5-5.1 mmol/L Chloride Level 102 98-107 mmol/L Carbon Dioxide Level 29 20-31 mmol/L Anion Gap 6 5-15 Blood Urea Nitrogen 18 9-23 mg/dL Creatinine 1.28 H 0.550-1.02 mg/dL Glomerular Filtration Rate Calc 41 >90 mL/min BUN/Creatinine Ratio 14.1 10.0-20.0 Serum Glucose 129 H 74-106 mg/dL Calcium Level 8.3 L 8.7-10.4 mg/dL Magnesium Level 1.7 1.6-2.6 mg/dL PATIENT: BRYANT ANN ACCT: [id number] UNIT: [id number] : 1940 LOC: ER ROOM / BED: / AGE / SEX: 83 / F ADM STATUS: REG ER SERVICE [id number] ORDERING PHYSICIAN: WILEY BERKOWITZ MD PROCEDURE(s): HWOCT - HEAD WITHOUT CONTRAST REASON: syncope ORDER NUMBER(s): [id number], ACCESSION NUMBER(s): [id number] EXAM: CT HEAD WITHOUT CONTRAST INDICATION: syncope TECHNIQUE: CT of the head without intravenous contrast. Radiation Dose Information: CT Dose: CTDI volume is 53.38 mGy. Dose-length product is 945.26 mGy*cm The dose indicators for CT are the volume Computed Tomography (CT) Dose Index (CTDIvol) and the Dose Length Product (DLP), and are measured in units of mGy and mGy-cm, respectively. These indicators are not patient dose, but values generated from the CT scanner acquisition factors. The report includes radiation exposure data for exposures received during this examination. COMPARISON: BRAIN HEAD WO CONTRAST on DOS: 05/19/21, HEAD WITHOUT CONTRAST on DOS: 05/16/21 FINDINGS: There is no evidence of acute intracranial hemorrhage, extra-axial collection, mass effect, midline shift, herniation or hydrocephalus. The ventricles, sulci and cisterns are age appropriate. The pinon-white differentiation is intact. Patchy periventricular and subcortical white matter hypoattenuation is nonspecific but may be related to small vessel ischemic disease. The visualized paranasal sinuses and mastoid air cells are clear. The surrounding soft tissues and osseous structures are unremarkable. IMPRESSION: 1. No CT evidence of acute intracranial abnormality. ORDERING PHYSICIAN: WILEY BERKOWITZ MD PROCEDURE(s): CXRP - CHEST PORTABLE REASON: syncope ORDER NUMBER(s): [id number], ACCESSION NUMBER(s): [id number] CHEST RADIOGRAPH Indication: syncope Technique: Single frontal view of the chest was obtained COMPARISON: CHEST PORTABLE on DOS: 05/16/21 FINDINGS: Lines and Tubes: None Lungs: Clear Pleura: No effusion. No pneumothorax. Cardiomediastinal contours: Unremarkable Bones: Unremarkable IMPRESSION: No acute disease. Assessment/Plan Assessment/Plan Autonomic dysfunction Acute renal injury Leukocytosis, unspecified Generalized weakness Plan 1. Admit to telemetry unit 2. Breathing treatment 3. Pain control management 4. IV antibiotic management 5. Management of fluids and electrolytes 6. Consultation for hospitalist 7. Diagnostic test head CT 8. DVT prophylaxis on SCDs 9. Repeat labs CBC, CMP in a.m. 10. Home medication reviewed and reconciled 11. Continue with current medical management 12. Treatment plan discussed with patient and RN. Patient verbalized understanding. Plan discussed with: Patient, Other (RN) My Orders Orders - MARION CHISHOLM DNP Procedure Category Date Status Time Donepezil Tablet PHA 06/29/24 In Process (Aricept Tablet) 22:00 Aspirin Tablet PHA 06/30/24 In Process 10:00 Atorvastatin (Lipitor) PHA 06/29/24 In Process 22:00 Amlodipine Tablet PHA 06/30/24 In Process (Norvasc Tablet) 10:00 Carvedilol Tablet PHA 06/29/24 In Process (Coreg Tablet) 22:00 Hydralazine Injection PHA 06/29/24 In Process (Apresoline Inject 15:45 Allergies FELIPE 06/29/24 In Process 15:40 Code Status CODE 06/29/24 Transmitted 15:40 Sodium Chloride 0.9% PHA 06/29/24 In Process 15:45 Oxygen Per Hour RT 06/29/24 Transmitted 15:40 Hydrocodone-Acet PHA 06/29/24 In Process 5/325mg Tab (Scooba 15:45 Ondansetron Hcl PHA 06/29/24 In Process (Zofran) 15:45 Docusate Sodium PHA 06/29/24 In Process Capsule (Colace 15:45 Fall Risk Precautions FELIPE 06/29/[address] 15:40 Complete Blood Count LAB 06/30/24 Verified 04:00 Comprehensive LAB 06/30/24 Verified Metabolic Panel 04:00 Cardiac DIET 06/29/24 Transmitted Diet-2gna,Lofat,Lochol Dinner Condition: Serious FELIPE 06/29/24 In Process 15:40 Acetaminophen Tablet PHA 06/29/24 In Process (Tylenol Tablet) 15:45 Sequential FELIPE 06/29/24 In Process Compression Device Problem List: (1) Autonomic dysfunction (2) Acute renal injury (3) Leukocytosis, unspecified (4) Generalized weakness Date of Service: Jun 29, 2024 Billing Provider: MARION CHISHOLM DNP Common Visit Codes: 92496-[id number] INP/OBS CARE (HIGH) MARION CHISHOLM DNP Jun 29, 2024 19:20
[2024-06-29 20:38] VITALS: PULSE 98; RESP 18; O2SAT 97
[2024-06-29 21:00] VITALS: BP 139/66; PULSE 85; RESP 18; TEMP 97.8; O2SAT 98
[2024-06-29] MEDS: DONEPEZIL HYDROCHLORIDE 5 MG TAB PO SCH (21:53)
[2024-06-29] MEDS: ATORVASTATIN 20 MG TAB PO SCH (21:55)
[2024-06-29] MEDS: CARVEDILOL 3.125 MG TAB PO SCH (21:55)
[2024-06-30] VITALS (8 sets, daily range): BP systolic 104–139; BP diastolic 47–69; PULSE 52–85; RESP 16–18; TEMP 97.7–98.7; O2SAT 94–100
[2024-06-30] MEDS ORDERED: PNEUMOCOCCAL VACC POLYS 25 MCG/0.5 ML VIAL IM ONE (03:45)
[2024-06-30] MEDS ORDERED: INFLUENZA TRIVALENT 2024-2025 0.5 ML INJ IM ONE (03:45)
[2024-06-30 05:52] LABS: Basophils # (auto) 0 10 ^3/uL (0-0.2); Basophils % (auto) 0.2 % (0.0-2.0); Eosinophils # (auto) 0 10 ^3/uL (0-0.8); Hematocrit 41.7 % (36.0-46.0); Hemoglobin 14.3 g/dL (12.2-16.2); Lymphocytes # (auto) 2.3 10 ^3/uL (0.4-5.4); Lymphocytes % (auto) 11.7 % (10.0-50.0); Mean Corpuscular Hemoglobin 30.3 pg (28.0-32.0); Mean Corpuscular Hgb Conc. 34.2 g/dL (32.0-36.0); Mean Corpuscular Volume 88.6 fL (80.0-100.0); Monocytes # (auto) 1.2 10 ^3/uL (0-1.3); Monocytes % (auto) 6.1 % (0.0-12.0); Neutrophils # (auto) 15.9 10 ^3/uL (1.6-8.6); Platelet Count (auto) 199 10^3/uL (140-450); Red Blood Cells 4.71 10^6/uL (4.0-5.20); Red Cell Distribution Width 14.8 % (11.8-14.3); White Blood Cell 19.4 10^3/uL (4.4-10.8)
[2024-06-30 06:15] LABS: Alanine Aminotransferase 24 U/L (7-40); Alkaline Phosphatase 62 U/L (46-116); Anion Gap 10 (5-15); BUN/Creatinine Ratio 11.3 (10.0-20.0); Blood Urea Nitrogen 14 mg/dL (9-23); Carbon Dioxide 27 mmol/L (20-31); Chloride 101 mmol/L (98-107); Glucose 104 mg/dL (74-106); Sodium 138 mmol/L (136-145)
[2024-06-30 06:16] LABS: Albumin 3.5 g/dL (3.2-4.8); Aspartate Aminotransferase 30 U/L (13-40); Bilirubin, Total 0.6 mg/dL (0.2-1.0); Total Protein 6.5 g/dL (5.7-8.2)
[2024-06-30 06:29] LABS: Calcium 8.4 mg/dL (8.7-10.4); Potassium 3.4 mmol/L (3.5-5.1)
[2024-06-30] MEDS: ASPirin 81 mg TAB PO SCH (10:08)
[2024-06-30] MEDS: amLODIPine BESYLATE 5 MG TAB PO SCH (10:09)
--- NOTE | 2024-06-30 13:58 | DVHPN2 ---
Subjective 83-year-old female with a history of dementia, hypertension, dyslipidemia who according to her son they were getting her ready to take care to the urgent care because she has been having a cough for 3 days and after she took a shower she became unresponsive and therefore she was brought to the emergency room. The family had been having a cold and cough for a week and they thought maybe she was exposed to the flu or something similar. She had low-grade fever also. She also had nausea and vomiting. Changes from previous H/P or p: Changes Eyes: No Pain, No Vision change, No Conjunctivae inflammation, No Eyelid inflammation, No Other, No Redness ENT: No Ear pain, No Ear discharge, No Nose pain, No Nose discharge, No Nose congestion, No Mouth pain, No Mouth swelling, No Throat pain, No Throat swelling, No Other Cardiovascular: No Chest Pain, No Palpitations, No Orthopnea, No Paroxysmal Noc. Dyspnea, No Edema, No Lt Headedness; Other (Syncope) Respiratory: No Cough, No Dry; Shortness of breath; No SOB with excertion, No Wheezing, No Hemoptysis, No Pleuritic Pain, No Sputum, No Other Gastrointestinal: Nausea, Vomiting; No Abdominal Pain, No Diarrhea, No Constipation, No Melena, No Hematochezia, No Other Genitourinary: No Dysuria, No Frequency, No Incontinence, No Hematuria, No Retention, No Other Musculoskeletal: No other, No neck pain, No shoulder pain, No arm pain, No back pain, No hand pain, No leg pain, No foot pain Skin: No Rash, No Lesions, No Jaundice, No Bruising, No Other Objective Vitals Vital Signs Date Time Temp Pulse Resp B/P (MAP) Pulse Ox O2 Delivery O2 Flow Rate FiO2 06/30/24 10:09 78 114/61 06/30/24 08:46 97.7 16 100 97.7 06/30/24 00:35 Nasal Cannula* 2 28 Intake/Output Intake and Output 06/30/24 07:00 Intake Total 280 ml Balance 280 ml Intake Oral 100 ml IV Total 180 ml General Appearance: Alert, Cooperative, Other Lungs: Clear to auscultation, Normal air movement Cardiovascular: Regular rate, Normal S1, Normal S2 Abdomen: Normal bowel sounds, Soft, No tenderness Extremities: No edema Medications Current Medications Medications Dose Ordered Sig/Carmen Route Start Time Stop Time Status Last Admin Dose Admin Donepezil HCl 10 mg HS PO 06/29/24 22:00 06/29/24 21:53 10 MG Aspirin 81 mg DAILY PO 06/30/24 10:00 06/30/24 10:08 81 MG Atorvastatin Calcium 10 mg HS PO 06/29/24 22:00 06/29/24 21:55 10 MG Amlodipine Besylate 5 mg DAILY PO 06/30/24 10:00 06/30/24 10:09 5 MG Carvedilol 6.25 mg Q12HR PO 06/29/24 22:00 06/30/24 10:09 6.25 MG Hydralazine HCl 10 mg Q6HP PRN IV 06/29/24 15:45 Sodium Chloride 1,000 ml @ 60 mls/hr [id number] IV 06/29/24 15:45 06/30/24 08:25 60 MLS/HR Acetaminophen/ Hydrocodone Bitart 1 tab Q4HP PRN PO 06/29/24 15:45 Ondansetron HCl 4 mg Q4HP PRN IV 06/29/24 15:45 Docusate Sodium 100 mg BIDPRN PRN PO 06/29/24 15:45 Acetaminophen 650 mg Q6HP PRN PO 06/29/24 15:45 Nitroglycerin 0.4 mg Q5MINP PRN SL 06/29/24 19:00 Morphine Sulfate 2 mg Q30M PRN IV 06/29/24 19:00 Laboratory Results Laboratory Tests 06/30/24 05:26 Chemistry Test 06/29/24 13:58 06/30/24 05:26 Calcium Level 8.3 mg/dL (8.7-10.4) L 8.4 mg/dL (8.7-10.4) L Magnesium Level 1.7 mg/dL (1.6-2.6) Albumin 3.5 g/dL (3.2-4.8) Total Protein 6.5 g/dL (5.7-8.2) LFT Test 06/30/24 05:26 Alanine Aminotransferase (ALT) 24 U/L (7-40) Alkaline Phosphatase 62 U/L (46-116) Aspartate Amino Transferase (AST) 30 U/L (13-40) Total Bilirubin 0.6 mg/dL (0.2-1.0) Urinalysis Test 06/29/24 14:58 Urine Color Colorless (Yellow) Urine Clarity Clear (Clear) Urine pH 6.5 (5.0-9.0) Urine Specific [place] 1.005 (1.001-1.035) Urine Protein Negative (Negative) Urine Ketones Negative (Negative) Urine Blood Trace /uL (Negative) H Urine Nitrite Negative (Negative) Urine Bilirubin Negative (Negative) Urine Urobilinogen Normal mg/dL (Negative) Urine Leukocyte Esterase Negative /uL (Negative) Urine RBC 1 /hpf (0 - 4) Urine WBC <1 /hpf (0 - 5) Urine Squamous Epithelial Cells None seen /hpf (<5) Urine Bacteria None seen /hpf (None Seen) Urine Glucose Normal mg/dL (Normal) Assessment/Plan Assessment/Plan Syncope most likely due to dehydration Dehydration Acute kidney injury hemodynamically mediated with a vasomotor nephropathy Rule out COVID or influenza Dementia Hypertension Dyslipidemia Leukocytosis Plan Check for COVID and influenza Continue IV fluids normal saline Aspirin Get physical therapy Discussed with her son over the phone Full code Plan discussed with: Patient, Son My Orders Orders - IRVING HILL MD Procedure Category Date Status Time Rapid Influenza A&B LAB 06/30/24 Logged 13:53 Covid19 Antigen [facility] 06/30/24 Logged Date of Service: Jun 30, 2024 Billing Provider: IRVING HILL MD Common Visit Codes: NOT BILLABLE IRVING HILL MD Jun 30, 2024 13:58
[2024-06-30 18:13] LABS: COVID19 ANTIGEN SOFIA FIA NEGATIVE (NEGATIVE)
[2024-06-30 18:14] LABS: Rapid Influenza B Negative (Negative)
[2024-06-30 18:28] LABS: Rapid Influenza A Positive (Negative)
[2024-07-01] VITALS (8 sets, daily range): BP systolic 99–177; BP diastolic 43–97; PULSE 60–98; RESP 14–18; TEMP 97.8–98.8; O2SAT 93–95
[2024-07-01 07:59] LABS: Basophils # (auto) 0 10 ^3/uL (0-0.2); Basophils % (auto) 0.2 % (0.0-2.0); Eosinophils # (auto) 0 10 ^3/uL (0-0.8); Eosinophils % (auto) 0.2 % (0.0-7.0); Hematocrit 41.9 % (36.0-46.0); Hemoglobin 14.7 g/dL (12.2-16.2); Lymphocytes # (auto) 1.4 10 ^3/uL (0.4-5.4); Lymphocytes % (auto) 11.3 % (10.0-50.0); Mean Corpuscular Hemoglobin 32.2 pg (28.0-32.0); Mean Corpuscular Volume 91.8 fL (80.0-100.0); Monocytes # (auto) 0.8 10 ^3/uL (0-1.3); Monocytes % (auto) 6.8 % (0.0-12.0); Neutrophils % (auto) 81.5 % (37.0-80.0); Nucleated Red Blood Cells % 0.1 %; Platelet Count (auto) 208 10^3/uL (140-450); Red Blood Cells 4.57 10^6/uL (4.0-5.20); Red Cell Distribution Width 14.5 % (11.8-14.3); White Blood Cell 12.2 10^3/uL (4.4-10.8)
[2024-07-01 08:01] LABS: Alanine Aminotransferase 20 U/L (7-40); Albumin 3.6 g/dL (3.2-4.8); Alkaline Phosphatase 68 U/L (46-116); Anion Gap 9 (5-15); Aspartate Aminotransferase 28 U/L (13-40); BUN/Creatinine Ratio 18.6 (10.0-20.0); Blood Urea Nitrogen 21 mg/dL (9-23); Calcium 8.9 mg/dL (8.7-10.4); Carbon Dioxide 26 mmol/L (20-31); Chloride 100 mmol/L (98-107); Glucose 87 mg/dL (74-106); Magnesium 1.7 mg/dL (1.6-2.6); Potassium 3.9 mmol/L (3.5-5.1)
[2024-07-01 08:02] LABS: Bilirubin, Total 0.6 mg/dL (0.2-1.0); Total Protein 6.8 g/dL (5.7-8.2)
[2024-07-01 08:07] LABS: Sodium 135 mmol/L (136-145)
[2024-07-01] MEDS ORDERED: OSELTAMIVIR 75 MG CAP PO SCH (10:00)
[2024-07-01] MEDS: OSELTAMIVIR 30 MG CAP PO SCH (10:21)
[2024-07-01] MEDS ORDERED: TAMIF30 PO (11:37)
--- NOTE | 2024-07-01 11:39 | DVHDS2 ---
Discharge Summary Date of Admission Jun 29, 2024 at 18:53 Date of Discharge: Jul 01, 2024 Labs/Diagnostic Data: Laboratory Results Test 07/01/24 07:07 06/30/24 17:37 06/29/24 17:25 06/29/24 14:58 White Blood Count 12.2 10^3/uL (4.4-10.8) Red Blood Count 4.57 10^6/uL (4.0-5.20) Hemoglobin 14.7 g/dL (12.2-16.2) Hematocrit 41.9 % (36.0-46.0) Mean Corpuscular Volume 91.8 fL (80.0-100.0) Mean Corpuscular Hemoglobin 32.2 pg (28.0-32.0) Mean Corpuscular Hemoglobin Concent 35.0 g/dL (32.0-36.0) Red Cell Distribution Width 14.5 % (11.8-14.3) Platelet Count 208 10^3/uL (140-450) Mean Platelet Volume 8.1 fL (6.9-10.8) Neutrophils (%) (Auto) 81.5 % (37.0-80.0) Lymphocytes (%) (Auto) 11.3 % (10.0-50.0) Monocytes (%) (Auto) 6.8 % (0.0-12.0) Eosinophils (%) (Auto) 0.2 % (0.0-7.0) Basophils (%) (Auto) 0.2 % (0.0-2.0) Neutrophils # (Auto) 10.0 10 ^3/uL (1.6-8.6) Lymphocytes # (Auto) 1.4 10 ^3/uL (0.4-5.4) Monocytes # (Auto) 0.8 10 ^3/uL (0-1.3) Eosinophils # (Auto) 0 10 ^3/uL (0-0.8) Basophils # (Auto) 0 10 ^3/uL (0-0.2) Nucleated Red Blood Cells 0.1 % Sodium Level 135 mmol/L (136-145) Potassium Level 3.9 mmol/L (3.5-5.1) Chloride Level 100 mmol/L (98-107) Carbon Dioxide Level 26 mmol/L (20-31) Anion Gap 9 (5-15) Blood Urea Nitrogen 21 mg/dL (9-23) Creatinine 1.13 mg/dL (0.550-1.02) Glomerular Filtration Rate Calc 48 mL/min (>90) BUN/Creatinine Ratio 18.6 (10.0-20.0) Serum Glucose 87 mg/dL (74-106) Calcium Level 8.9 mg/dL (8.7-10.4) Magnesium Level 1.7 mg/dL (1.6-2.6) Total Bilirubin 0.6 mg/dL (0.2-1.0) Aspartate Amino Transferase (AST) 28 U/L (13-40) Alanine Aminotransferase (ALT) 20 U/L (7-40) Alkaline Phosphatase 68 U/L (46-116) Total Protein 6.8 g/dL (5.7-8.2) Albumin 3.6 g/dL (3.2-4.8) Influenza Type A Antigen Positive (Negative) Influenza Type B Antigen Negative (Negative) SARS-CoV-2 Antigen (Rapid) Negative (NEGATIVE) Lactic Acid Level 1.9 mmol/L (0.4-2.0) Troponin I High Sensitivity 57 ng/L (</=34) Urine Color Colorless (Yellow) Urine Clarity Clear (Clear) Urine pH 6.5 (5.0-9.0) Urine Specific [place] 1.005 (1.001-1.035) Urine Protein Negative (Negative) Urine Ketones Negative (Negative) Urine Blood Trace /uL (Negative) Urine Nitrite Negative (Negative) Urine Bilirubin Negative (Negative) Urine Urobilinogen Normal mg/dL (Negative) Urine Leukocyte Esterase Negative /uL (Negative) Urine RBC 1 /hpf (0 - 4) Urine WBC <1 /hpf (0 - 5) Urine Squamous Epithelial Cells None seen /hpf (<5) Urine Bacteria None seen /hpf (None Seen) Urine Glucose Normal mg/dL (Normal) Other Laboratory Tests 07/01/24 07:07 Brief Hx & Hospital Course: Final diagnoses: Influenza A Syncope most likely due to dehydration Dehydration Acute kidney injury hemodynamically mediated with a vasomotor nephropathy Dementia Hypertension Dyslipidemia Leukocytosis 83-year-old female who was admitted for weakness and altered level of consciousness and dehydration She was diagnosed with influenza A She was given IV fluids overnight and her mental status improved significantly Tamiflu was started today after the result came back positive for influenza A She is more alert She is doing better She walked with Physical therapy and ambulated well We will try to contact family today to discharge the patient home Take Tamiflu 30 mg twice a day for 5 days Resume other home medications Follow up with her primary care physician as soon as possible Condition at Discharge: Stable Final Diagnosis/Problems List Influenza A Syncope most likely due to dehydration Dehydration Acute kidney injury hemodynamically mediated with a vasomotor nephropathy Dementia Hypertension Dyslipidemia Leukocytosis Discharge Disposition: Home SNF Discharge Will this Physician continue t: No Discharge Statement: "Patient was advised to return to the ER or call 911 if any headaches, dizziness, shortness of breath, chest pain, abdominal pain, bleeding, fevers, or worsening of medical condition. Patient was counseled about treatment plan, medications, possible side effects, patientverbalized understanding. All questions were answered to the best of my ability. This discharge took greater then 30 minutes in planning, reviewing documentation, counseling the patient, and discussing with other team members." ASSESSMENT ASSESSMENT Assessment Date of Service: Jul 01, 2024 Billing Provider: IRVING HILL MD Common Visit Codes: NOT BILLABLE IRVING HILL MD Jul 01, 2024 11:39
[2024-07-02 01:00] VITALS: BP 122/65; PULSE 66; RESP 17; TEMP 97.9; O2SAT 96
[2024-07-02 05:00] VITALS: BP 112/70; PULSE 57; RESP 18; TEMP 94.2; O2SAT 97
[2024-07-02 08:20] VITALS: PULSE 60
[2024-07-02 08:53] VITALS: BP 109/53; PULSE 59; RESP 15; TEMP 97; O2SAT 97
[2024-07-02 13:00] VITALS: BP 114/63; PULSE 60; RESP 15; TEMP 97.6; O2SAT 97
== END 2024-07-02 15:35 | disposition home or self-care (01) | DRG 640 ==
LOC: EDBD 12:20 → ER 12:20 → TELE 18:53 → TELE-WESTW 23:13 → WEST WING 07-02 11:05
PROVIDERS: ADMIT Nurse Practitioner Family; ATTEND Internal Medicine Geriatric Medicine
DX: E86.0 Dehydration (principal); N17.0 Acute kidney failure with tubular necrosis; J10.1 Influenza due to other identified influenza virus with other respiratory manifestations; G90.9 Disorder of the autonomic nervous system, unspecified; D72.829 Elevated white blood cell count, unspecified; I10 Essential (primary) hypertension; Z20.822 Contact with and (suspected) exposure to COVID-19; E78.5 Hyperlipidemia, unspecified; F03.90 Unspecified dementia, unspecified severity, without behavioral disturbance, psychotic disturbance, mood disturbance, and anxiety; Z88.0 Allergy status to penicillin; Z90.49 Acquired absence of other specified parts of digestive tract; Z87.891 Personal history of nicotine dependence
CPT/HCPCS: 36415; 70450; 71045; 80048; 80053; 81001; 83605; 83735; 84484; 85025; 87426; 87804; 93005; 97110; 97116; 97163; 97530; 99291; G0378; G9035